=== PATIENT | male | born 1965 | race Caucasian/White ===

== ENCOUNTER 2021-10-29 20:26 | Inpatient (IN) | payer SELFPAY ==
[~2021-10-29] VITALS: Ht 152.4 cm; Wt 71.2 kg
[2021-10-29] MEDS ORDERED: KETOROLAC 60MG/2ML VIAL IM STA (23:45)
[2021-10-30 00:55] LABS: BASOPHILS % 0.5 % (0.0-2.0); EOSINOPHILS % 0.4 % (0.0-5.0); HEMATOCRIT. 35.3 % (42.0-52.0); HEMOGLOBIN. 12.2 g/dL (14.0-18.0); LYMPHOCYTES % 9.3 % (20.0-50.0); MEAN CORPUSCULAR HEMOGLOBIN 30.4 pg (28.0-32.0); MEAN CORPUSCULAR VOLUME 88.3 fL (80.0-94.0); MEAN PLATELET VOLUME 8.3 fl (7.4-10.4); MONOCYTES % 9.3 % (2.0-8.0); NEUTROPHILS % 80.5 % (40.0-76.0); PLATELET 302 x1000/uL (130-400); RED CELL DISTRIBUTION WIDTH 12.2 % (11.6-14.6)
[2021-10-30 00:59] LABS: CHLORIDE 91 mEq/L (98-107)
[2021-10-30 01:22] LABS: CLARITY URINE CLEAR (CLEAR); COLOR URINE YELLOW (YELLOW); KETONES URINE NEGATIVE (NEGATIVE); LEUKOCYTE ESTERASE URINE NEGATIVE (NEGATIVE); NITRITE URINE NEGATIVE (NEGATIVE); OCCULT BLOOD URINE 1+ (NEGATIVE); PH URINE 5.5 (4.5-8.0); PROTEIN URINE 4+ (NEGATIVE); SPECIFIC GRAVITY URINE 1.023 (1.005-1.030)
[2021-10-30] MEDS ORDERED: PIPERACILLIN/TAZ 3.375G PREMIX 50 ML IV NR (01:45)
[2021-10-30] MEDS ORDERED: VANCOMYCIN 1G PREMIX 200 ML IV NR (01:45)
[2021-10-30] MEDS ORDERED: SODIUM CHLORIDE 0.9% 1,000 ML IV ONE (01:45)
[2021-10-30] MEDS ORDERED: ACETAMINOPHEN 325MG TABLET PO PRN (03:15)
[2021-10-30] MEDS ORDERED: INSULIN REGULAR (HUMULIN R) 300UNITS/3ML VIAL SUBCUT ONE (05:00)
[2021-10-30] MEDS ORDERED: AMLODIPINE 10MG TABLET PO STA (05:58)
[2021-10-30] MEDS ORDERED: HYDROCODONE/ACETAMINOPHEN 5/325MG TABLET PO PRN (11:30)
[2021-10-30] MEDS ORDERED: NALOXONE HCL 0.4MG/ML VIAL IV PRN (11:45)
[2021-10-30] MEDS ORDERED: INSULIN LISPRO 100 UNITS/ML SUBCUT PRN (12:00)
[2021-10-30] MEDS: BLOOD SUGAR DIAGNOSTIC STRIP TEST SCH ×3 (12:23→17:45)
[2021-10-30] MEDS: ENOXAPARIN 40MG/0.4ML SYR SUBCUT SCH (13:53)
[2021-10-30] MEDS ORDERED: CEFTRIAXONE 1 G PREMIX 50 ML IV SCH (15:30)
[2021-10-30 16:00] VITALS: BP 153/94
[2021-10-30 16:33] VITALS: BP 140/89
[2021-10-30] MEDS ORDERED: DEXTROSE 50% WATER 50ML SYRINGE IV PRN (17:00)
[2021-10-30] MEDS: INSULIN LISPRO 100 UNITS/ML SUBCUT SCH (17:31)
[2021-10-30] MEDS: CEFTRIAXONE 1,000 MG in DEXTROSE 5% WATER 50 ML IV SCH (17:57)
[2021-10-30] MEDS: VANCOMYCIN 1GM PMX (XELLIA) 200 ML IV SCH (18:24)
[2021-10-30 20:00] VITALS: BP 134/77
[2021-10-31] VITALS: BP 125/76
[2021-10-31 04:00] VITALS: BP 130/80
[2021-10-31] MEDS: BLOOD SUGAR DIAGNOSTIC STRIP TEST SCH ×7 (06:00→21:11)
[2021-10-31 08:00] VITALS: BP 150/94
[2021-10-31] MEDS: INSULIN LISPRO 100 UNITS/ML SUBCUT SCH ×5 (08:42→21:15)
[2021-10-31] MEDS ORDERED: GLIP5TAB12 MT (08:55)
[2021-10-31] MEDS ORDERED: AZIT500T8 MT ×2 (08:55)
[2021-10-31] MEDS ORDERED: METF-414 MT (08:55)
[2021-10-31] MEDS ORDERED: AMOX1TAB16 MT (11:33)
[2021-10-31] MEDS ORDERED: SULF1TAB48 MT (11:33)
[2021-10-31 12:00] VITALS: BP 168/98
[2021-10-31] MEDS: SODIUM CHLORIDE 0.9% 1,000 ML IV SCH ×2 (12:34→21:17)
[2021-10-31] MEDS: ENOXAPARIN 40MG/0.4ML SYR SUBCUT SCH (12:34)
[2021-10-31 12:53] LABS: BASOPHILS % 0.7 % (0.0-2.0); EOSINOPHILS % 1.1 % (0.0-5.0); HEMATOCRIT. 34.7 % (42.0-52.0); HEMOGLOBIN. 11.9 g/dL (14.0-18.0); LYMPHOCYTES % 9.1 % (20.0-50.0); MEAN CORPUSCULAR HEMOGLOBIN 30.5 pg (28.0-32.0); MEAN CORPUSCULAR VOLUME 89.1 fL (80.0-94.0); MEAN PLATELET VOLUME 8.7 fl (7.4-10.4); NEUTROPHILS % 82.1 % (40.0-76.0); PLATELET 348 x1000/uL (130-400); RED BLOOD CELL COUNT 3.89 mill/uL (4.7-6.1); RED CELL DISTRIBUTION WIDTH 12.4 % (11.6-14.6)
[2021-10-31] MEDS: VANCOMYCIN 1GM PMX (XELLIA) 200 ML IV SCH (17:19)
[2021-10-31] MEDS: CEFTRIAXONE 1,000 MG in DEXTROSE 5% WATER 50 ML IV SCH (17:19)
[2021-10-31] MEDS ORDERED: CLONIDINE 0.1MG TABLET PO PRN (19:45)
[2021-10-31 20:00] VITALS: BP 189/89
[2021-10-31] MEDS: AMLODIPINE 5MG TABLET PO SCH (21:12)
[2021-10-31 22:00] VITALS: BP 148/88
[2021-11-01] VITALS: BP 137/80
[2021-11-01] MEDS ORDERED: ACETAMINOPHEN 325MG TABLET PO PRN (02:00)
[2021-11-01 04:00] VITALS: BP 143/85
[2021-11-01] MEDS: SODIUM CHLORIDE 0.9% 1,000 ML IV SCH (07:45)
[2021-11-01 07:54] LABS: CHLORIDE 103 mEq/L (98-107)
[2021-11-01 08:00] VITALS: BP 174/93
[2021-11-01] MEDS: BLOOD SUGAR DIAGNOSTIC STRIP TEST SCH ×2 (08:00→12:19)
[2021-11-01] MEDS: INSULIN LISPRO 100 UNITS/ML SUBCUT SCH ×2 (08:12→12:38)
[2021-11-01] MEDS: AMLODIPINE 5MG TABLET PO SCH (08:15)
[2021-11-01 12:00] VITALS: BP 160/80
[2021-11-01] MEDS ORDERED: VANCOMYCIN 1GM PMX (XELLIA) 200 ML IV SCH (12:00)
[2021-11-01] MEDS: ENOXAPARIN 40MG/0.4ML SYR SUBCUT SCH (12:19)
[2021-11-01] MEDS ORDERED: AMLO10TA4 MT (14:11)
[2021-11-01] MEDS ORDERED: CLONIDINE 0.2MG TABLET PO NR (15:15)
[2021-11-01 16:00] VITALS: BP 157/94
[2021-11-01 16:29] VITALS: BP 155/89
== END 2021-11-01 16:48 | disposition home or self-care (01) | DRG 710 ==
LOC: ER 20:26 → 6EST 10-30 05:42 → EDBEDREQTM 10-30 06:02 → EDBEDREQ 10-30 06:02 → SUPCPDRO 10-30 11:30 → ENRESERV 10-30 13:35 → 6EST 10-30 14:17
PROVIDERS: ADMIT Internal Medicine; ATTEND Internal Medicine
PROC: 0J9R0ZZ Drainage of Left Foot Subcutaneous Tissue and Fascia, Open Approach (ICD-10-PCS; principal; 2021-10-31)
DX: A41.9 Sepsis, unspecified organism (principal); N17.9 Acute kidney failure, unspecified; E87.1 Hypo-osmolality and hyponatremia; L97.529 Non-pressure chronic ulcer of other part of left foot with unspecified severity; L03.116 Cellulitis of left lower limb; E11.621 Type 2 diabetes mellitus with foot ulcer; L02.612 Cutaneous abscess of left foot; E11.65 Type 2 diabetes mellitus with hyperglycemia; I10 Essential (primary) hypertension; Z20.822 Contact with and (suspected) exposure to COVID-19; Z83.3 Family history of diabetes mellitus; Z82.49 Family history of ischemic heart disease and other diseases of the circulatory system; Z79.4 Long term (current) use of insulin
CPT/HCPCS: 36415; 71045; 73630; 73718; 80048; 80053; 80202; 81003; 82962; 83036; 84145; 85025; 87070; 87426; 99285; C9803; J0696; J1650; J1815; J1885; J2543; J3370; J7030; J7060

== ENCOUNTER 2022-01-04 08:46 | Emergency (ER) | payer MEDICAID ==
[~2022-01-04] VITALS: Ht 162.6 cm; Wt 80.0 kg
[~2022-01-04 08:46] MED LIST: AMLO10TA4 MT; AMOX1TAB16 MT; GLIP5TAB12 MT; METF-414 MT; SULF1TAB48 MT
[2022-01-04 08:51] VITALS: BP 147/85
== END 2022-01-04 11:21 | disposition home or self-care (01) ==
LOC: ER 08:46
DX: Z45.2 Encounter for adjustment and management of vascular access device (principal)
CPT/HCPCS: 99281; Z7610